=== PATIENT | female | born 1960 | race Caucasian/White ===

== ENCOUNTER 2016-10-14 10:00 | Inpatient (IN) | payer BC ==
[~2016-10-14] VITALS: Ht 157.5 cm; Wt 88.9 kg
--- NOTE | ~2016-10-14 | DS ---
PATIENT'S NAME: PARRIS WALKER [facility] AGE: 56 Y [address] ROOM: [place] [address] LOCATION: [facility] ADMIT DATE: 10/27/2016 Discharge Summary DISCHARGE DATE: 10/29/2016 FAMILY PHYSICIAN: Kalin Rudolph MD ATTENDING PHYSICIAN: Kaley Serrano PRIMARY DIAGNOSIS: Degenerative joint disease of the right knee. SECONDARY DIAGNOSES: 1. Diabetes mellitus. 2. Hypertension. PROCEDURE PERFORMED: Right total knee arthroplasty. HISTORY: The patient is a 56-year-old female, who presents with advanced right knee degenerative joint disease and associated severely compromised activities of daily living. The patient has decided to proceed with total knee arthroplasty after having been thoroughly counseled regarding the risks, benefits, limitations and alternatives. Please refer to the outpatient clinic notes and admission history and physical for this patient. HOSPITAL COURSE: The patient underwent a right total knee arthroplasty on 10/27/2016 without complications. Spinal anesthesia plus adductor canal block plus periarticular local anesthesia was utilized. The patient received 24 hours of perioperative prophylactic antibiotics and remained hemodynamically stable, neurovascularly intact throughout the entire hospital course. The postoperative prophylactic deep venous thrombosis prophylaxis consisted of Xarelto, early mobilization and pneumatic compression devices. Daily physical therapy for gait training, transfer training range of motion and quadriceps isometric exercises were received. The patient progressed well in physical therapy. On the date of discharge, 10/29/2016, the incision at the knee was healing well and showed no signs of infection. DISPOSITION: Home. DISCHARGE ACTIVITY: The patient is to bear weight as tolerated with range of motion and quadriceps isometric exercises as instructed. The operative extremity is to be elevated at least 90% of the day. There is to be sterile 4x4 gauze dressings to the incision daily. Dr. Serrano is to be notified immediately if there is any increased pain, fevers, chills erythema or drainage. DISCHARGE MEDICATIONS: 1. Xarelto 10 mg 1 tab p.o. daily for 12 days for postoperative DVT PATIENT'S NAME: PARRIS WALKER [facility] AGE: 56 Y [address] ROOM: [place] [address] LOCATION: [facility] ADMIT DATE: 10/27/2016 Discharge Summary DISCHARGE DATE: 10/29/2016 FAMILY PHYSICIAN: Kalin Rudolph MD ATTENDING PHYSICIAN: Kaley Serrano. 2. Hydromorphone 2 mg 1 to 2 tabs p.o. every 4 hours p.r.n. for pain. 3. Diazepam 5 mg 1/2 to 1 tab p.o. every 6 hours p.r.n. for muscle spasms. 4. Gabapentin 300 mg 1 tab p.o. at night for 7 days for pain. She was then instructed to continue all her other preadmission medications instructed by her internal medicine doctor. FOLLOWUP: Followup appointment is to be with Dr. Serrano's office on 11/03/2016 for her initial postoperative evaluation with removal of sutures and x-rays of her knee. NEHA ANDREWS PA-C FOR KALEY SERRANO MD SMW/modl /[id number] d: 11/13/16430 t: 11/14/16 1811, DISCHARGE SUMMARY
--- NOTE | ~2016-10-14 | PN ---
PATIENT'S NAME: CARMEN WILEY [facility] AGE: 56 Y [address] ROOM: [address] [place], [place] [address] LOCATION: [facility] ADMIT DATE: 10/27/2016 Progress Notes DISCHARGE DATE: FAMILY PHYSICIAN: LESIA BEARDEN MD ATTENDING PHYSICIAN: KALEY SERRANO DATE OF SERVICE: 10/27/2016 CLINICAL UPDATE: Carmen Wiley was seen at approximately 6 p.m. on the day of surgery. Please see my preop history and physical that was done at my office. When I see her, she is resting quietly in a chair. Her is present for the interview. She says her pain is about 4/10. She has no nausea or vomiting or chest pain. She has been taking metformin as an outpatient. Her sugar here postop was 132. She has been told she is a "borderline diabetic" in the past. I told her and her we would start her on a sliding-scale insulin protocol with NovoLog, and check her sugars four times a day here and they understand. ASSESSMENT: 1. Status post right total knee arthroplasty. 2. Exogenous obesity. 3. Borderline diabetes mellitus, type 2. PLAN: I will direct my attention towards her blood sugar and blood pressure, and Dr. Kaley Serrano will be in charge of the orthopedic component of her care obviously. Thanks, Dr. Serrano for the consultation. LESIA BEARDEN MD [employer] TECHNICAL ADVISOR/modl /[id number] d: 10/28/16 0045 t: 10/31/16 0737, PROGRESS NOTES
--- NOTE | ~2016-10-14 | OR ---
PATIENT'S NAME: CARMEN WILEY [facility] AGE: 56 Y [address] ROOM: [place] [address] LOCATION: [facility] ADMIT DATE: 10/27/2016 OR/Procedure Report DISCHARGE DATE: FAMILY PHYSICIAN: LESIA BEARDEN MD ATTENDING PHYSICIAN: KALEY SERRANO SURGEON: Kaley Serrano MD BEE BREEDER: 1. EVELINE Pierre. 2. Arnav Morales CST/INDER. DATE OF PROCEDURE: 10/27/2016 PREOPERATIVE DIAGNOSIS: Degenerative joint disease, right knee. POSTOPERATIVE DIAGNOSIS: Degenerative joint disease, right knee. OPERATION: Right total knee arthroplasty with computer navigation. ANESTHESIA: Spinal anesthesia plus adductor canal block plus periarticular local anesthesia (ropivacaine with epinephrine and Toradol). ESTIMATED BLOOD LOSS: Less than 10 mL. DRAIN: None. SPECIMEN: None. COMPLICATIONS: None. IMPLANT SYSTEM: [employer] Tri[employer]lon. 1. Size 3 right posterior-stabilized femoral component. 2. Size 2 universal modular tibial baseplate. 3. An 11 mm posterior-stabilized size 2 X3 tibial polyethylene insert. 4. A 29 mm oval X3 patellar component. INDICATIONS FOR SURGERY: Carmen Wiley is a 56-year-old female who presents with advanced right knee degenerative joint disease and associated severely compromised activities of daily living. The patient has decided to proceed with knee replacement after having been thoroughly counseled regarding the associated risks, benefits, and limitations. We have specifically reviewed the risks and implications of infection, deep venous thrombosis, pulmonary embolism, mortality, neurovascular complications, blood transfusion (and associated potential for disease transmission or transfusion reaction), stiffness, instability, mechanical deterioration of the components (due to wear and or loosening), and the potential need for revision. We have also emphasized the importance of active involvement and compliance with post- operative physical therapy as a means of optimizing range of motion and PATIENT'S NAME: CARMEN WILEY [facility] AGE: 56 Y [address] ROOM: [place] [address] LOCATION: [facility] ADMIT DATE: 10/27/2016 OR/Procedure Report DISCHARGE DATE: FAMILY PHYSICIAN: LESIA BEARDEN MD ATTENDING PHYSICIAN: KALEY SERRANO functional recovery. Informed consent has been granted. DESCRIPTION OF PROCEDURE: The patient was positioned supine after administration of anesthesia and prophylactic antibiotics. A well-padded pneumatic tourniquet was placed around the right proximal thigh, and the right lower extremity was prepped and draped with vigilant sterile technique. The patient's name as well as the intended operative side and procedure were confirmed with a verbal time-out involving myself, the circulating nurse, the scrub nurse, and the anesthesiologist. Examination under anesthesia demonstrated a moderate effusion. There were well-healed inferomedial and inferolateral arthroscopy portal scars. There were no active skin lesions or masses. There was no erythema. There was no abnormal warmth. Range of motion under anesthesia was from a 5-degree flexion contracture to 100 degrees of flexion. There was no ligamentous insufficiency. The right lower extremity was elevated and exsanguinated with an Esmarch wrap, and the pneumatic tourniquet was inflated to 300mmHg. The knee was approached through a longitudinal midline incision. A medial parapatellar arthrotomy was performed and the patella was everted. Examination of the joint space demonstrated a moderate effusion. This consisted of benign-appearing translucent serosanguineous fluid. There were no loose bodies. There was generalized mild nonproliferative synovitis. The cruciate ligaments were intact. There were small osteophytes at the intercondylar notch. There was complex degenerative tearing of the midportion of the medial meniscus. There was mild inner perimeter tearing of the lateral meniscus. There was full- thickness loss of articular cartilage throughout the entire medial femoral condyle and the anteromedial 60% of the medial tibial plateau. There were large osteophytes at the medial femoral condyle, medial tibial plateau, superior femoral trochlea, and medial femoral trochlea. There was a 1 cm diameter region of full-thickness articular cartilage loss at the central aspect of the lateral femoral condyle. There was grade 2 chondromalacia and deep fissuring at the lateral tibial plateau. There was a 5 mm diameter region of full-thickness articular cartilage loss at the inferior aspect of the lateral facet of the patella. There was fibrosis of the infrapatellar fat pad. There was compartmentalization of the suprapatellar pouch. There were moderate grade 3 degenerative changes throughout the femoral trochlea. There was high-grade partial-thickness articular cartilage loss at the medial and lateral facets of the patella. There was a moderate-sized osteophyte at the superior pole of the patella. Remnants of the menisci and cruciate ligaments were excised. The [employer] computer navigation femoral tracker was pinned in place at the distal aspect PATIENT'S NAME: CARMEN WILEY [facility] AGE: 56 Y [address] ROOM: [address] [address] LOCATION: [facility] ADMIT DATE: 10/27/2016 OR/Procedure Report DISCHARGE DATE: FAMILY PHYSICIAN: LESIA BEARDEN MD ATTENDING PHYSICIAN: KALEY SERRANO of the femoral trochlea. Absence of motion between the femur and the tracking device was confirmed manually and visually. Femoral osseous landmarks were obtained in order to calibrate the computer navigation system. Landmarks included the center of rotation of the ipsilateral hip, the center-point of the distal femur, the femoral AP axis, 57 points on the medial femoral condyle articular surface, and 57 points on the lateral femoral condyle articular surface. The [employer] computer navigation system was subsequently utilized to position the distal femoral resection block such that the distal femoral resection was performed perfectly perpendicular to the femoral mechanical axis. The distal femoral resection was performed with a [employer] oscillating saw. The [employer] computer navigation tibial tracker was pinned in place at the anterior aspect of the tibial plateau. Absence of motion between the tibia and the tracking device was confirmed manually and visually. Tibial osseous landmarks were obtained in order to calibrate the computer navigation system. Landmarks included the center-point of the tibial plateau, the AP tibial axis, 57 points on the medial tibial plateau articular surface, 57 points on the lateral tibial plateau articular surface, the medial malleolus, and the lateral malleolus. The [employer] computer navigation system was subsequently utilized to position the proximal tibial resection block such that the proximal tibial resection was performed perfectly perpendicular to the tibial mechanical axis. The proximal tibial resection was performed with a [employer] oscillating saw. Perpendicularity of the tibial resection with respect to the tibial shaft axis was reconfirmed by inserting a spacer- block attached to an extramedullary guide stanford. External rotation of the anterior and posterior femoral resections was set parallel to the epicondylar axis and carefully adjusted in order to create a rectangular flexion gap. The box resection was performed with a reciprocating saw. Anterior and posterior chamfer resections were performed with the oscillating saw. Posterior condyle osteophytes were excised with an osteotome. All other osteophytes were excised with a rongeur. Resection of all remnants of the menisci was reconfirmed. Flexion and extension gaps were confirmed to be symmetric and well balanced with a spacer-block technique. The patella resection was performed with an oscillating saw such that the composite thickness of the reconstructed patella was equivalent to the thickness of the yuhaaviatam patella. Patella tracking was optimal, and there was no need for a lateral retinacular release. All trial components were removed and all prepared osseous surfaces were thoroughly irrigated with pulsatile saline lavage and dried prior to cementing all three components in a single stage using [employer] Simplex cement containing pre-mixed tobramycin. All extruded excess cement was removed. The entire PATIENT'S NAME: CARMEN WILEY [facility] AGE: 56 Y [address] ROOM: [address] [address] LOCATION: [facility] ADMIT DATE: 10/27/2016 OR/Procedure Report DISCHARGE DATE: FAMILY PHYSICIAN: LESIA BEARDEN MD ATTENDING PHYSICIAN: KALEY SERRANO joint space was thoroughly inspected and thoroughly irrigated with bacteriostatic pulsatile saline lavage to assure that there was no residual debris of any sort. Final range of motion was from full extension (with no passive hyperextension) to 130 degrees of flexion. Patella tracking was reconfirmed to be optimal. There was excellent anteroposterior stability at 90 degrees of flexion. There was less than 1 mm of medial lift-off to valgus stress in full extension. There was less than 1 mm of lateral lift-off to varus stress in full extension. The arthrotomy was closed with multiple simple and [id number] interrupted #1 Vicryl. Subcutaneous tissues were thoroughly re-irrigated with bacteriostatic pulsatile saline lavage. Subcutaneous tissues were re- approximated with simple buried interrupted #0 Vicryl sutures. The skin was closed with simple buried interrupted 2-0 Vicryl sutures followed by surgical jolene. The dressing consisted of Xeroform gauze, 4x4 gauze, ABD pads and two 6-inch Ramírez Wraps. There were no intra-operative complications. It should be noted that the physician's administration assistant played an active, integral role throughout this entire operation. By providing expert retraction, they greatly facilitated and expedited safe and effective exposure of the distal femur, proximal tibia and patella for preparation and implantation of the components. They were also actively involved in the patient's positioning, prepping and draping, as well as wound closure. MD SRIDHAR BENZ/giovanny /[id number] d: 10/27/16 1501 t: 10/28/16 1033, OPERATIVE SUMMARY
[2016-10-14] MEDS ORDERED: MOBIC15 MG PO (16:26)
[2016-10-14] MEDS ORDERED: LIPITOR10 MG PO (16:27)
[2016-10-14] MEDS ORDERED: GLUCOPHAGE500 MG PO (16:27)
[2016-10-14] MEDS ORDERED: LOSARTAN-HCTZ1 EACH PO (16:28)
[2016-10-14] MEDS ORDERED: TAB-A-VITE1 EACH PO (16:28)
[2016-10-14] MEDS ORDERED: FISH OIL300 MG PO (16:30)
[2016-10-14] MEDS ORDERED: TRIAMCINOLONE454 GM TOP (16:31)
[2016-10-29] MEDS ORDERED: TYLENOL EXTRA500 MG PO (12:48)
[2016-10-29] MEDS ORDERED: COLACE100 MG PO (12:49)
[2016-10-29] MEDS ORDERED: NEURONTIN300 MG PO (12:50)
[2016-10-29] MEDS ORDERED: MIRALAX17 GM PO (12:51)
[2016-10-29] MEDS ORDERED: XARELTO10 MG PO (12:52)
[2016-10-29] MEDS ORDERED: VALIUM5 MG PO (12:54)
[2016-10-29] MEDS ORDERED: DILAUDID 2MG(HYD2 MG PO (12:57)
== END 2016-10-29 15:30 | disposition disaster alternative care site (69) | DRG 470 ==
LOC: G3N 10-27 06:07
PROVIDERS: ADMIT Orthopaedic Surgery
PROC: 0SRC0J9 Replacement of Right Knee Joint with Synthetic Substitute, Cemented, Open Approach (ICD-10-PCS; principal; 2016-10-27)
PROC: XR2G021 Monitoring of Right Knee Joint using Intraoperative Knee Replacement Sensor, Open Approach, New Technology Group 1 (ICD-10-PCS; principal; 2016-10-27)
DX: M17.11 Unilateral primary osteoarthritis, right knee (principal); I10 Essential (primary) hypertension; E66.09 Other obesity due to excess calories; Z68.35 Body mass index [BMI] 35.0-35.9, adult; Z23 Encounter for immunization; E11.9 Type 2 diabetes mellitus without complications
CPT/HCPCS: C1713; C1776; G0009; J0690; J1100; J1170; J1885; J2001; J2250; J2795; J7030; J7120

== ENCOUNTER → 2016-10-16 | Outpatient (CLI) | payer BC ==
[~2016-10-16] MED LIST: COLACE100 MG PO; DILAUDID 2MG(HYD2 MG PO; FISH OIL300 MG PO; GLUCOPHAGE500 MG PO; LIPITOR10 MG PO; LOSARTAN-HCTZ1 EACH PO; MIRALAX17 GM PO; MOBIC15 MG PO; NEURONTIN300 MG PO; TAB-A-VITE1 EACH PO; TRIAMCINOLONE454 GM TOP; TYLENOL EXTRA500 MG PO; VALIUM5 MG PO; XARELTO10 MG PO
== END | disposition disaster alternative care site (69) ==
LOC: GNJRC 10:45
DX: Z01.812 Encounter for preprocedural laboratory examination (principal); M17.11 Unilateral primary osteoarthritis, right knee